=== PATIENT | male | born 1945 | race Caucasian/White ===

== ENCOUNTER → 2019-07-11 | Outpatient (CLI) | payer OTHER ==
[~2019-07-11] VITALS: Ht 188 cm; Wt 93.9 kg
[~2019-07-11] MED LIST: AMITRIPTYLINE H25 M2 PO; ASPIR 8181 MG PO; LIPITOR40 MG PO; NORVASC5 MG PO
[2019-07-11 09:58] VITALS: BP 144/68
[2019-07-11 10:05] LABS: HEMATOCRIT 42.1 % (42.0-52.0); HEMOGLOBIN 13.9 gm/dL (14.0-18.0); MCV 81.8 fL (80.0-100.0); RBC 5.15 mil/uL (4.50-6.00); RDW 15.7 % (10.5-14.5); WBC 5.7 thou/uL (4.0-11.0)
[2019-07-11 10:20] LABS: CALCIUM 9.6 mg/dL (8.5-10.1); POTASSIUM 3.9 mmol/L (3.5-5.1)
[2019-07-11 10:26] LABS: CHOLESTEROL 131 mg/dL (<200); HDL CHOLESTEROL 45 mg/dL (>40); LDL CHOLESTEROL 74 mg/dL (<100); TC:HDL 2.9 Ratio (Not establshd); TRIGLYCERIDE 63 mg/dL (<150); VLDL 13 mg/dL (<40)
--- NOTE | 2019-07-11 16:10 | CATHLAB ---
[facility] [place] [address] INVASIVE PROCEDURE REPORT Name: LALI PINTO Room #: REG MARIAH CoyneLea#: [id number] Admission: 07/11/19 Attend Phys: Ricardo Clifton MD Discharge: Date of : 49 Date of Service: 07/11/19 1609 Report #: [id number] THIS REPORT FOR: //name// APPROVED REPORT Study performed: 07/11/2019 10:42:51 Patient Details The patient is a 74 year-old male Event Personnel Ricardo Clifton Senior Telecommunications Technician, Stan Martinez RTR Scrub, Philipp Stewart RTR Scrub, Manjula Fuller RTR Monitor, Charissa Stearns RTR, DEAN OF [employer]ACULT[employer] Monitor, Junito Porter RN medical stenographer Performed Left Heart Cath w/or w/o Coronaries [id number] [facility] Indication Positive stress test, Chest pain Risk Factors Hypercholesterolemia, Hypertension Procedure Narrative The Right Groin^ was infiltrated with subcutaneous anesthesia. A PINNACLE 4FR Sheath #[id number] sheath was inserted into the RFA^. Coronary angiography was performed using coronary diagnostic catheters. The right coronary system was accessed and visualized with a JR4 catheter. The left coronary system was accessed and visualized with a JL5 catheter. The left ventricle was accessed and visualized with a PIGTAIL catheter. Left ventricular/Aortic Valve gradient assessed via catheter pullback. Hemostasis was obtained with manual pressure following sheath removal without any complications. The patient tolerated the procedure well and there were no complications associated with the procedure. There was no hematoma. Intraoperative Conscious Sedation Sedation start time: 1139 Case end Time: 1200 Fentanyl 100 mcg Versed 2 mg Fluoro Time: 3.01 minutes Dose: DAP 4447.20 cGycm2 524 mGy Contrast Type and Amount: Omnipaque 45 ml [facility] [place] [place] [address] INVASIVE PROCEDURE REPORT Name: MILLIELALI Room #: REG [facility]#: [id number] Admission: 07/11/19 Attend Phys: Ricardo Clifton MD Discharge: Date of : 49 Date of Service: 07/11/19 1609 Report #: [id number] Coronary Angiography The patient's coronary anatomy is right dominant. Diagnostic Cath Left Main This is a large caliber vessel, with minimal disease distally. LAD This is a moderate size caliber vessel, calcified in the proximal and mid segments. The distal segment wraps around the apex. There is mild diffuse disease in the proximal and mid segments, 20%. Diagonal 1 This is a small-caliber vessel with moderate disease in the proximal segment, 40%. Diagonal 2 This is a small-caliber vessel, patent with no flow-limiting lesions. Circumflex This is a moderate size caliber vessel, with mild disease proximally, 20%. OM1 This is a moderate size caliber vessel, with mild disease at the ostium, 30%. OM2 This is a patent vessel, with no flow-limiting lesions. Right Coronary This is a dominant vessel, with mild disease proximally, 20%. R PDA This is a patent vessel, with no flow-limiting lesions. RPLV This is a patent vessel, with no flow-limiting lesions. Left Ventriculography Left Ventriculography was not performed. Ejection Fraction was >55% based off patient's Echocardiogram. An LVEDP was measured and there is no gradient across the outflow tract. Hemodynamics The aortic pressure is 153/70 mmHg with a mean of 92 mmHg. The left ventricular pressure is 159/13 mmHg with a mean of mmHg. The left ventricular end diastolic pressure is 22 mmHg. Conclusion 1. Mild to moderate, nonobstructive coronary artery disease. 2. Right dominant system. 3. Normal LV systolic function. 4. Recommend aggressive risk factor management. <ELECTRONICALLY SIGNED> By: Ricardo Clifton MD 07/11/19 1609 1609 1609 Ricardo Clifton MD /INF
--- NOTE | 2019-07-12 18:07 | EKG ---
[place] [address] [address] [facility] [place] [address] ELECTROCARDIOGRAM REPORT Name: LALI PINTO Room #: JANENE SANDS Christine#: [id number] Admission: 07/11/19 Attend Phys: Ricardo Clifton MD Discharge: Date of : 49 Report #: [id number] THIS REPORT FOR: //name// [facility] Test Date: 2019-07-11 Test Time: 10:09:37 Pat Name: LALI PINTO Department: Room: Gender: Sexologist: Chris RAMOS : 1945 Requested By: Ricardo Clifton Order Number: [id number] MD: Steven Booker Measurements Intervals [place] Rate: 64 P: 29 VT: 173 QRS: -38 QRSD: 97 T: 27 QT: 417 QTc: 431 Interpretive Statements Sinus rhythm Left axis deviation No previous ECG available for comparison Electronically Signed On 07-12-2019 18:07:08 CDT by Steven Booker [email or web address] <ELECTRONICALLY SIGNED> By: Steven Booker MD, [facility] 07/12/19 1807 1009 1009 Steven Booker MD, FACC /EPI
== END | disposition home or self-care (01) ==
LOC: CATH 09:28
PROVIDERS: Internal Medicine Cardiovascular Disease
DX: I25.10 Atherosclerotic heart disease of native coronary artery without angina pectoris (principal); I10 Essential (primary) hypertension; E78.00 Pure hypercholesterolemia, unspecified; E78.5 Hyperlipidemia, unspecified; M19.90 Unspecified osteoarthritis, unspecified site; Z98.890 Other specified postprocedural states; Z79.899 Other long term (current) drug therapy; Z79.82 Long term (current) use of aspirin

== ENCOUNTER → 2020-01-01 | Outpatient (CLI) | payer OTHER, MEDICARE | LOC: SJCVC 09:19 | DX: E11.8 Type 2 diabetes mellitus with unspecified complications (principal) ==

== ENCOUNTER → 2020-02-21 | Outpatient (CLI) | payer OTHER, MEDICARE | LOC: SJCVC 10:32 | DX: R94.31 Abnormal electrocardiogram [ECG] [EKG] (principal); I25.10 Atherosclerotic heart disease of native coronary artery without angina pectoris; I10 Essential (primary) hypertension; E78.00 Pure hypercholesterolemia, unspecified; R00.1 Bradycardia, unspecified ==

== ENCOUNTER → 2020-08-28 | Outpatient (CLI) | payer OTHER, MEDICARE | LOC: SJCVC 10:40 | PROVIDERS: ATTEND Internal Medicine Cardiovascular Disease | DX: R94.31 Abnormal electrocardiogram [ECG] [EKG] (principal); I10 Essential (primary) hypertension; I25.10 Atherosclerotic heart disease of native coronary artery without angina pectoris; E78.00 Pure hypercholesterolemia, unspecified; R00.1 Bradycardia, unspecified; Z79.899 Other long term (current) drug therapy ==

== ENCOUNTER → 2021-02-25 | Outpatient (CLI) | payer OTHER, MEDICARE | LOC: SJCVCIMAG 09:49 | PROVIDERS: ATTEND Internal Medicine Cardiovascular Disease | DX: R94.31 Abnormal electrocardiogram [ECG] [EKG] (principal); I08.3 Combined rheumatic disorders of mitral, aortic and tricuspid valves; I11.9 Hypertensive heart disease without heart failure; R00.1 Bradycardia, unspecified; I25.10 Atherosclerotic heart disease of native coronary artery without angina pectoris; E78.00 Pure hypercholesterolemia, unspecified; I35.0 Nonrheumatic aortic (valve) stenosis; M19.90 Unspecified osteoarthritis, unspecified site; Z88.0 Allergy status to penicillin; Z79.82 Long term (current) use of aspirin; Z79.899 Other long term (current) drug therapy ==

== ENCOUNTER → 2021-09-14 | Outpatient (CLI) | payer OTHER, MEDICARE | LOC: SJCVC 14:39 | PROVIDERS: ATTEND Internal Medicine Cardiovascular Disease | DX: R94.31 Abnormal electrocardiogram [ECG] [EKG] (principal); I10 Essential (primary) hypertension; I25.10 Atherosclerotic heart disease of native coronary artery without angina pectoris; E78.00 Pure hypercholesterolemia, unspecified; I35.0 Nonrheumatic aortic (valve) stenosis; Z88.0 Allergy status to penicillin; Z79.82 Long term (current) use of aspirin; Z79.899 Other long term (current) drug therapy; Z72.89 Other problems related to lifestyle ==